=== PATIENT | male | born 1980 | race Hispanic/Latino ===

== ENCOUNTER 2023-04-15 14:34 | Emergency (ER) | payer OTHER ==
[~2023-04-15] VITALS: Ht 170.2 cm; Wt 142.9 kg
[2023-04-15 14:41] VITALS: BP 164/94; PULSE 88; RESP 16
[2023-04-15] MEDS ORDERED: FLUORESCEIN SODIUM 1 STRIP STRIP OP ONE (17:30)
[2023-04-15] MEDS ORDERED: TETRACAINE HCL 0.5% 4 ML OPHTH SOLN OP ONE (17:30)
[2023-04-15] MEDS ORDERED: OFLO5DRO OD (17:46)
[2023-04-15] MEDS ORDERED: IBUP-2077 PO (17:46)
== END 2023-04-15 18:02 | disposition home or self-care (01) ==
LOC: EDH 14:34
DX: H16.201 Unspecified keratoconjunctivitis, right eye (principal); H18.9 Unspecified disorder of cornea; Z79.899 Other long term (current) drug therapy; Z98.890 Other specified postprocedural states